=== PATIENT | female | born 1980 | race Caucasian/White ===

== ENCOUNTER 2021-01-04 08:29 | Outpatient (CLI) | payer OTHER, SELFPAY ==
--- NOTE | ~2021-01-04 | MM_ITS ---
EXAMINATION: MM screening vega BI w rhona HISTORY: Screening TECHNIQUE: Craniocaudal and mediolateral oblique 3-D tomosynthesis images were obtained and synthetic 2-D images were generated. CAD analysis was submitted and interpreted. COMPARISON: No prior mammogram is available for comparison at this institution. BREAST PARENCHYMAL COMPOSITION: Breast composed of scattered areas of fibroglandular density. FINDINGS: There are focal asymmetries in the mid outer aspect of the left breast posteriorly. There a re no suspicious masses, calcifications or architectural distortion in the right breast to suggest ma lignancy. IMPRESSION: 1. Focal left breast asymmetries posteriorly. 2. Additional mammographic views and possible breast ultrasound are recommended. BI-RADS Category 0: Incomplete: Needs additional imaging evaluation. Reviewed, dictated and finalized at location A. IMPRESSION: 1. Focal left breast asymmetries posteriorly. 2. Additional mammographic views and possible breast ultrasound are recommended . BI-RADS Category 0: Incomplete: Needs additional imaging evaluation.
== END 2021-01-04 08:30 | disposition home or self-care (01) ==
LOC: ANHIMG 08:32
PROVIDERS: PCP Internal Medicine; Visit Provider Obstetrics & Gynecology
DX: Z12.31 Encounter for screening mammogram for malignant neoplasm of breast (principal); R92.8 Other abnormal and inconclusive findings on diagnostic imaging of breast
CPT/HCPCS: 77063; 77067

== ENCOUNTER 2021-01-19 07:01 | Outpatient (CLI) | payer OTHER, SELFPAY ==
[2021-01-19 07:22] LABS: Basophils Absolute Auto 0.02 K/mm3 (0.00-0.10); Basophils Percent Auto 0.5 % (0.0-1.0); Eosinophils Absolute Auto 0.07 K/mm3 (0.02-0.50); Eosinophils Percent Auto 1.6 % (1.0-6.0); Hematocrit 42.2 % (35.0-49.0); Immature Granulocyte Absolute 0.01 K/mm3 (0.00-0.00); Immature Granulocyte Percent A 0.2 % (0.0-0.0); Lymphocytes Absolute Auto 1.37 K/mm3 (1.10-4.50); Lymphocytes Percent Auto 31.1 % (18.0-42.0); Mean Corpuscular HGB Conc 33.2 g/dL (32.0-36.0); Mean Corpuscular Hemoglobin 30.8 pg (27.0-31.0); Mean Corpuscular Volume 92.7 fL (78.0-102.0); Mean Platelet Volume 9.6 fl (9.2-11.8); Monocytes Absolute Auto 0.54 K/mm3 (0.10-0.90); Monocytes Percent Auto 12.2 % (2.0-11.0); Neutrophils Absolute Auto 2.4 K/mm3 (1.7-7.2); Neutrophils Percent Auto 54.4 % (50.0-70.0); Platelet Count Result 193 K/mm3 (150-420); Red Blood Count 4.55 M/mm3 (4.20-5.40); Red Cell Distribution Width 12.1 % (11.6-14.4); White Blood Count 4.4 K/mm3 (4.8-10.8)
[2021-01-19 08:21] LABS: Add Urine Microscopic? NO; Appearance Urine Clear (Clear); Bilirubin Urine Negative (Negative); Blood Urine Negative (Negative); Color Urine Light Yellow (Yellow); Glucose Urine UA Negative (Negative); Ketones Urine Negative (Negative); Leukocyte Esterase Ur Negative (Negative); Nitrate Urine Negative (Negative); Protein Urine Negative (Negative); Specific Grav Ur 1.015 (1.010-1.020); Urobilinogen Urine 0.2 mg/dL (0.2-1.0); pH Urine 7.5 (5.0-8.0)
[2021-01-19 08:39] LABS: Alanine Aminotransferase 30 U/L (14-59); Albumin Level 4.1 g/dL (3.4-5.0); Alkaline Phosphatase 40 U/L (46-116); Anion Gap 7 mmol/L (8-16); Aspartate Amino Transferase 15 U/L (15-37); Bilirubin,Total 0.3 mg/dL (0.00-1.00); Blood Urea Nitrogen 8 mg/dL (7-18); Calcium 8.5 mg/dL (8.5-10.1); Carbon Dioxide 30 mmol/L (21-32); Chloride 105 mmol/L (98-108); Cholesterol 139 mg/dL (0-200); Estimated Glomerular Filt Rate > 60; Glucose 95 mg/dL (70-99); HDL Direct 38 mg/dL (40-60); LDL Cholesterol Calculated 85 mg/dL (<130); Osmolality Calculated 292 mOsm/kg (285-295); Sodium 142 mmol/L (136-145); Thyroid Stimulating Hormone 1.45 uIU/mL (0.36-3.74); Total Protein 7.1 g/dL (6.4-8.2); Triglycerides 81 mg/dL (0-150)
== END 2021-01-19 07:02 | disposition home or self-care (01) ==
LOC: CHSLAB 07:03
PROVIDERS: PCP Internal Medicine; Visit Provider Internal Medicine
DX: Z00.00 Encounter for general adult medical examination without abnormal findings (principal)
CPT/HCPCS: 36415; 80053; 80061; 81003; 84443; 85025

== ENCOUNTER 2021-02-04 13:49 | Outpatient (CLI) | payer OTHER, SELFPAY ==
--- NOTE | ~2021-02-04 | MMUS_ITS ---
EXAMINATION: MM diagnostic vega LT w rhona, US breast LT limited HISTORY: Follow-up left breast asymmetry TECHNIQUE: Additional 3-D tomosynthesis images of left were performed and synthetic 2-D images were g enerated. CAD analysis was submitted and interpreted. High resolution left breast ultrasound was perf ormed. COMPARISON: 01/04/2021 BREAST PARENCHYMAL COMPOSITION: Breast composed of scattered areas of fibroglandular density FINDINGS: MAMMOGRAPHIC FINDINGS: There are no suspicious masses, calcifications or architectural distortion to suggest malignancy. ULTRASOUND: Limited left breast ultrasound: Normal heterogeneous echotexture without focal solid or cystic mass. IMPRESSION: 1. No evidence for malignancy in the left breast. 2. Routine yearly screening mammogram and regular clinical breast examination are recommended. BI-RADS Category 2: Benign finding(s). Reviewed, dictated and finalized at location A. IMPRESSION: 1. No evidence for malignancy in the left breast. 2. Routine yearly screening mammogram and regular clinical breast examination a re recommended. BI-RADS Category 2: Benign finding(s).
== END 2021-02-04 13:50 | disposition home or self-care (01) ==
LOC: ANHIMG 13:56
PROVIDERS: PCP Internal Medicine; Visit Provider Obstetrics & Gynecology
DX: R92.8 Other abnormal and inconclusive findings on diagnostic imaging of breast (principal)
CPT/HCPCS: 76642; 77061; 77065; G0279

== ENCOUNTER 2021-02-23 07:21 | Outpatient (CLI) | payer OTHER, SELFPAY ==
[2021-02-23 07:39] LABS: Basophils Absolute Auto 0.06 K/mm3 (0.00-0.10); Eosinophils Absolute Auto 0.17 K/mm3 (0.02-0.50); Eosinophils Percent Auto 2.7 % (1.0-6.0); Hemoglobin 13.9 g/dL (12.0-15.0); Immature Granulocyte Absolute 0.02 K/mm3 (0.00-0.00); Immature Granulocyte Percent A 0.3 % (0.0-0.0); Lymphocytes Absolute Auto 1.78 K/mm3 (1.10-4.50); Lymphocytes Percent Auto 28.3 % (18.0-42.0); Mean Corpuscular HGB Conc 32.3 g/dL (32.0-36.0); Mean Corpuscular Hemoglobin 30.5 pg (27.0-31.0); Mean Corpuscular Volume 94.3 fL (78.0-102.0); Mean Platelet Volume 9.3 fl (9.2-11.8); Monocytes Absolute Auto 0.56 K/mm3 (0.10-0.90); Monocytes Percent Auto 8.9 % (2.0-11.0); Neutrophils Absolute Auto 3.7 K/mm3 (1.7-7.2); Neutrophils Percent Auto 58.8 % (50.0-70.0); Platelet Count Result 256 K/mm3 (150-420); Red Blood Count 4.56 M/mm3 (4.20-5.40); Red Cell Distribution Width 11.9 % (11.6-14.4); White Blood Count 6.3 K/mm3 (4.8-10.8)
== END 2021-02-23 07:22 | disposition home or self-care (01) ==
LOC: CHSLAB 07:24
PROVIDERS: PCP Internal Medicine; Visit Provider Internal Medicine
DX: D72.819 Decreased white blood cell count, unspecified (principal)
CPT/HCPCS: 36415; 85025

== ENCOUNTER 2021-08-14 18:18 | Outpatient (CLI) | payer OTHER, SELFPAY ==
--- NOTE | ~2021-08-14 | XR_ITS ---
XR lumbar spine 2-3V 08/14/2021 18:46 Indication: Low back pain Procedure: 3 views lumbar spine Comparison: No prior studies for comparison. Findings: Vertebral body heights are maintained. There is mild disc narrowing at L4-5 and L5-S1. Pedi cles intact. No evidence for acute fracture or traumatic malalignment. No spondylolisthesis. Sacral f oramen are symmetric. 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 Impression: 1: Mild lumbar spondylosis. Reviewed, dictated and finalized at location A. Impression: 1: Mild lumbar spondylosis.
--- NOTE | ~2021-08-14 | XR_ITS ---
EXAMINATION: XR hip BI wo pelvis INDICATION: Bilateral hip pain TECHNIQUE: Two views of each hip are obtained. COMPARISON: None available FINDINGS: Bone alignment is normal. There is no fracture. There is mild osteoarthritis of the hips. T he soft tissues are unremarkable. IMPRESSION: 1. Mild osteoarthritis of the hips. Reviewed, dictated and finalized at location A.
[2021-08-14 18:35] LABS: Basophils Absolute Auto 0.06 K/mm3 (0.00-0.10); Basophils Percent Auto 0.8 % (0.0-1.0); Eosinophils Absolute Auto 0.23 K/mm3 (0.02-0.50); Eosinophils Percent Auto 3.2 % (1.0-6.0); Hematocrit 38.2 % (35.0-49.0); Hemoglobin 12.8 g/dL (12.0-15.0); Immature Granulocyte Absolute 0.02 K/mm3 (0.00-0.00); Immature Granulocyte Percent A 0.3 % (0.0-0.0); Lymphocytes Absolute Auto 2.19 K/mm3 (1.10-4.50); Lymphocytes Percent Auto 30.1 % (18.0-42.0); Mean Corpuscular HGB Conc 33.5 g/dL (32.0-36.0); Mean Corpuscular Hemoglobin 31.1 pg (27.0-31.0); Mean Corpuscular Volume 92.7 fL (78.0-102.0); Mean Platelet Volume 9.3 fl (9.2-11.8); Monocytes Absolute Auto 0.58 K/mm3 (0.10-0.90); Neutrophils Absolute Auto 4.2 K/mm3 (1.7-7.2); Neutrophils Percent Auto 57.6 % (50.0-70.0); Platelet Count Result 274 K/mm3 (150-420); Red Blood Count 4.12 M/mm3 (4.20-5.40); Red Cell Distribution Width 11.9 % (11.6-14.4); White Blood Count 7.3 K/mm3 (4.8-10.8)
[2021-08-14 18:36] LABS: Add Urine Microscopic? YES; Appearance Urine Clear (Clear); Bilirubin Urine Negative (Negative); Blood Urine 1+ (Negative); Color Urine Yellow (Yellow); Glucose Urine UA Negative (Negative); Ketones Urine Trace (Negative); Leukocyte Esterase Ur Negative (Negative); Nitrate Urine Negative (Negative); Protein Urine Negative (Negative); Specific Grav Ur 1.025 (1.010-1.020); Urobilinogen Urine 0.2 mg/dL (0.2-1.0)
[2021-08-14 19:06] LABS: Alanine Aminotransferase 23 U/L (14-59); Albumin Level 4.2 g/dL (3.4-5.0); Alkaline Phosphatase 42 U/L (46-116); Anion Gap 7 mmol/L (8-16); Aspartate Amino Transferase 13 U/L (15-37); Bilirubin,Total 0.3 mg/dL (0.00-1.00); Blood Urea Nitrogen 10 mg/dL (7-18); Calcium 8.7 mg/dL (8.5-10.1); Carbon Dioxide 27 mmol/L (21-32); Chloride 103 mmol/L (98-108); Estimated Glomerular Filt Rate > 60; Free T3 2.55 pg/mL (2.18-3.98); Free T4 Free Thyroxine 1.12 ng/dL (0.76-1.46); Glucose 88 mg/dL (70-99); Osmolality Calculated 282 mOsm/kg (285-295); Potassium 3.6 mmol/L (3.5-5.1); Sodium 137 mmol/L (136-145); Thyroid Stimulating Hormone 1.29 uIU/mL (0.36-3.74); Total Protein 7.5 g/dL (6.4-8.2)
[2021-08-14 19:25] LABS: CRP < 0.2 mg/dL (0.0-0.9)
[2021-08-14 19:43] LABS: Bacteria Urine Trace /hpf; Mucus Urine Rare /lpf; RBC Urine 0-2 /hpf (0-2); Squamous Epithelial Cell Urine Rare /hpf (Few); WBC Urine 0-3 /hpf (0-3)
== END 2021-08-14 18:19 | disposition home or self-care (01) ==
LOC: CHSLAB 18:21
PROVIDERS: PCP Internal Medicine; Visit Provider Internal Medicine
DX: R53.83 Other fatigue (principal); M54.9 Dorsalgia, unspecified; M25.552 Pain in left hip; M25.551 Pain in right hip
CPT/HCPCS: 36415; 72100; 73521; 80053; 81001; 84439; 84443; 84481; 85025; 86140

== ENCOUNTER 2022-04-08 15:29 | Outpatient (CLI) | payer OTHER, SELFPAY ==
--- NOTE | ~2022-04-08 | MM_ITS ---
EXAMINATION: MM screening vega BI w rhona HISTORY: Screening mammogram TECHNIQUE: Craniocaudal and mediolateral oblique 3-D tomosynthesis images were obtained and synthetic 2-D images were generated. CAD analysis was submitted and interpreted. COMPARISON: 02/04/2021, 01/04/2021 BREAST PARENCHYMAL COMPOSITION: There are scattered areas of fibroglandular density. FINDINGS: No suspicious mass, calcification, or architectural distortion are identified in either rich ast to suggest malignancy. There has been no suspicious interval change. IMPRESSION: 1. No mammographic evidence of malignancy. 2. Recommend routine screening mammography in one year. BI-RADS Category 1: Negative Reviewed, dictated and finalized at location A. RAM MANAGEMENT ANALYST
== END 2022-04-08 15:30 | disposition home or self-care (01) ==
PROVIDERS: PCP Internal Medicine; Visit Provider Obstetrics & Gynecology
DX: Z12.31 Encounter for screening mammogram for malignant neoplasm of breast (principal)
CPT/HCPCS: 77063; 77067

== ENCOUNTER 2022-08-30 07:16 | Outpatient (CLI) | payer OTHER, SELFPAY ==
[2022-08-30 07:37] LABS: Appearance Urine Clear (Clear); Bilirubin Urine Negative (Negative); Blood Urine 1+ (Negative); Color Urine Light Yellow (Yellow); Glucose Urine UA Negative (Negative); Ketones Urine Negative (Negative); Leukocyte Esterase Ur Negative (Negative); Nitrate Urine Negative (Negative); Protein Urine Negative (Negative); Specific Grav Ur 1.015 (1.010-1.020); Urobilinogen Urine 0.2 mg/dL (0.2-1.0)
[2022-08-30 07:38] LABS: Basophils Absolute Auto 0.05 K/mm3 (0.00-0.10); Basophils Percent Auto 0.8 % (0.0-1.0); Eosinophils Percent Auto 6.8 % (1.0-6.0); Hematocrit 39.5 % (35.0-49.0); Hemoglobin 13.1 g/dL (12.0-15.0); Immature Granulocyte Absolute 0.02 K/mm3 (0.00-0.00); Immature Granulocyte Percent A 0.3 % (0.0-0.0); Lymphocytes Absolute Auto 1.81 K/mm3 (1.10-4.50); Lymphocytes Percent Auto 30.7 % (18.0-42.0); Mean Corpuscular HGB Conc 33.2 g/dL (32.0-36.0); Mean Corpuscular Volume 93.4 fL (78.0-102.0); Mean Platelet Volume 9.5 fl (9.2-11.8); Monocytes Absolute Auto 0.49 K/mm3 (0.10-0.90); Monocytes Percent Auto 8.3 % (2.0-11.0); Neutrophils Absolute Auto 3.1 K/mm3 (1.7-7.2); Neutrophils Percent Auto 53.1 % (50.0-70.0); Platelet Count Result 262 K/mm3 (150-420); Red Blood Count 4.23 M/mm3 (4.20-5.40); White Blood Count 5.9 K/mm3 (4.8-10.8)
[2022-08-30 07:43] LABS: Add Urine Microscopic? YES; Bacteria Urine Rare /hpf; RBC Urine 0-2 /hpf (0-2); Squamous Epithelial Cell Urine None seen /hpf (Few); WBC Urine None seen /hpf (0-3)
[2022-08-30 08:21] LABS: Alanine Aminotransferase 31 U/L (14-59); Albumin Level 3.9 g/dL (3.4-5.0); Alkaline Phosphatase 43 U/L (46-116); Anion Gap 6 mmol/L (8-16); Aspartate Amino Transferase 20 U/L (15-37); Bilirubin,Total 0.2 mg/dL (0.00-1.00); Blood Urea Nitrogen 14 mg/dL (7-18); Calcium 8.4 mg/dL (8.5-10.1); Carbon Dioxide 29 mmol/L (21-32); Chloride 106 mmol/L (98-108); Cholesterol 159 mg/dL (0-200); Estimated Glomerular Filt Rate > 60; Glucose 101 mg/dL (70-99); HDL Direct 42 mg/dL (40-60); LDL Cholesterol Calculated 105 mg/dL (<130); Osmolality Calculated 292 mOsm/kg (285-295); Potassium 4.2 mmol/L (3.5-5.1); Sodium 141 mmol/L (136-145); Thyroid Stimulating Hormone 2.04 uIU/mL (0.36-3.74); Total Protein 6.7 g/dL (6.4-8.2); Triglycerides 62 mg/dL (0-150)
== END 2022-08-30 07:17 | disposition home or self-care (01) ==
LOC: CHSLAB 07:18
PROVIDERS: PCP Internal Medicine; Visit Provider Internal Medicine
DX: Z00.00 Encounter for general adult medical examination without abnormal findings (principal); R53.83 Other fatigue; E78.5 Hyperlipidemia, unspecified
CPT/HCPCS: 36415; 80053; 80061; 81001; 84443; 85025

== ENCOUNTER 2023-10-06 15:47 | Outpatient (CLI) | payer OTHER, SELFPAY ==
--- NOTE | ~2023-10-06 | MM_ITS ---
EXAMINATION: MM screening vega BI w rhona HISTORY: Screening mammogram TECHNIQUE: Craniocaudal and mediolateral oblique 3-D tomosynthesis images were obtained and synthetic 2-D images were generated. CAD analysis was submitted and interpreted. COMPARISON: 04/08/2022, 01/04/2021 BREAST PARENCHYMAL COMPOSITION:Not Dense. There are scattered areas of fibroglandular density. FINDINGS: No suspicious mass, calcification, or architectural distortion are identified in either rich ast to suggest malignancy. There has been no suspicious interval change. IMPRESSION: No mammographic evidence of malignancy. Recommend routine screening mammography in one year. BI-RADS Category 1: Negative Reviewed, dictated and finalized at location .
== END 2023-10-06 15:48 | disposition home or self-care (01) ==
PROVIDERS: PCP Internal Medicine; Visit Provider Obstetrics & Gynecology
DX: Z12.31 Encounter for screening mammogram for malignant neoplasm of breast (principal)
CPT/HCPCS: 77063; 77067

== ENCOUNTER 2024-02-20 09:29 | Emergency (ER) | payer OTHER, SELFPAY ==
--- NOTE | 2024-02-20 10:34 | ED_ITS ---
HPI - URI/Sore Throat General Chief Complaint: Upper Respiratory Infection Stated Complaint: cough Time Seen by Provider: 02/20/24 10:34 Source: patient, RN notes reviewed and old records reviewed Mode of arrival: ambulatory Limitations: no limitations History of Present Illness HPI Narrative: 43-year-old female to Express Care with complaint of dry cough for 2 days that is becoming increasingly more persistent. Patient states concern for pneumonia because her 2 children just finished being treated for pneumonia. Patient denies fever, shortness of breath, chest pain, allergies, pertinent medical history. Patient able to tolerate fluids by mouth. Patient resting in exam room in no acute distress, appears tired. respirations even and nonlabored. Patient able to speak in complete sentences without difficulty. Related Data Home Medications Medication Instructions Recorded Confirmed galcanezumab-gnlm 120 mg/mL 120 mg subcut MONTHLY 12/26/20 02/20/24 subcutaneous pen injector (Emgality Pen) Allergies Allergy/AdvReac Type Severity Reaction Status Date / Time No Known Allergies Allergy Unknown Verified 04/28/23 14:25 Review of Systems Review of Systems: All systems reviewed & are unremarkable except as noted in HPI and below Constitutional: Constitutional: Reports no additional constitutional complaints Eyes: Eyes: Reports no additional eye complaints ENT: Reports system reviewed and no additional complaints, except as documented Cardiovascular: Cardiovascular: Reports no additional cardiovascular complaints, Denies chest pain and Denies dyspnea Respiratory: Respiratory: Reports no additional respiratory complaints, Denies cough and Denies dyspnea Musculoskeletal: Musculoskeletal: Reports no additional musculoskeletal complaints Neurologic: Reports system reviewed and no additional complaints, except as documented Psychiatric: Psychiatric: Reports no additional psychiatric complaints PMFSH Past Medical History Medical History Bilateral hip dysplasia Lumbar spondylolysis Missed Vaginal delivery x 2 Surgical History Surgical History History of craniotomy Family History Family History Father Hypertension Family history of elevated blood lipids Grandparent Hypertension, Onset Age: 70 Family history of malignant neoplasm of breast Family history of lupus erythematosus Social History Social History Smoking status: Never smoker Second hand tobacco smoke exposure: No Alcohol intake: current Substance use: never Substance use type: does not use Do You Feel Safe in your Home?: Yes Lack of Transportation: No Lack of Food: Never True Current Housing: I Have Housing Concerned About Future Housing: No Difficulty Paying Gas/Electric Bills: No Difficulty Paying for Meds: No Currently Unemployed: No Education: Bachelor's Degree Difficulty w/ Childcare or Family Care: No Comments At the time of my signature, I reviewed and agree with the nursing past medical, surgical, social, and family history. There is no relevant family history pertinent to the patient complaint. Exam Const: General: cooperative, healthy appearing, comfortable, no acute distress, alert and well nourished Nutritional Appearance: well nourished Orientation/consciousness: patient oriented x3 Limitations: no limitations HENMT: Head: normal to inspection Ears: external ears normal Face/Nose/Sinus: Normal external nose present, Normal nares present, normal facial exam, No erythema and No edema Face and sinus: normal facial exam, no erythema and no edema Mouth: Yes Normal oral and palatal mucosa present Eyes: General: appearance normal, both eyes and all related structures Neck: Neck: normal visual inspection, full ROM and no meningeal signs Lymphatic: no lymphadenopathy noted and no lymphedema noted Chest: Chest palpation & inspection: normal inspection of the chest Resp: Effort & Inspection: normal respiratory effort and able to speak in complete sentences Auscultation: clear to auscultation bilaterally Cardio: Jugular venous distension: no JVD Rate: regular rate Rhythm: regular rhythm Back/Spine/Pelvis: Cervical Spine: cervical ROM normal Skin: General skin exam: normal color, no rashes or lesions noted and turgor normal Neuro: General: patient oriented x3, gait normal, moves all extremities and no meningeal signs Speech: normal speech Gait exam (Neuro): Normal gait present Extrem: General: normal to inspection, full ROM and capillary refill normal Psych: Appearance: grossly normal and well kempt Course Course Emergency Course: Some parts of this dictation were generated by voice recognition software and may contain typographical and/or grammatical inaccuracies. Level of Care: Express Care Visit Vital Signs Vital signs: Vital Signs Temperature 36.7 C 02/20/24 10:46 Pulse Rate 77 02/20/24 10:46 Respiratory Rate 16 02/20/24 10:46 Blood Pressure 120/86 02/20/24 10:46 Pulse Oximetry 100 02/20/24 10:46 Temperature 36.7 C 02/20/24 10:46 Pulse Rate 77 02/20/24 10:46 Respiratory Rate 16 02/20/24 10:46 Blood Pressure 120/86 02/20/24 10:46 Pulse Oximetry 100 02/20/24 10:46 reviewed MDM - URI/Sore Throat MDM Narrative Medical decision making narrative: 43-year-old female to Express Care with complaint of dry cough for 2 days that is becoming increasingly more persistent. Patient states concern for pneumonia because her 2 children just finished being treated for pneumonia. Patient denies fever, shortness of breath, chest pain, allergies, pertinent medical history. Patient able to tolerate fluids by mouth. Patient resting in exam room in no acute distress, appears tired. respirations even and nonlabored. Patient able to speak in complete sentences without difficulty. Differential Diagnosis Differential diagnosis: Likely upper respiratory infection, croup, otitis media, sinusitis, viral infection, bronchitis, influenza and pharyngitis Discharge Plan Discharge Clinical Impression: Pneumonia Patient Disposition: Home, Self-Care Condition: Stable Instructions: Pneumonia (ED) Additional Instructions: please finish entire course of antibiotic treatment -Alternate Tylenol and Motrin per package directions for fever or pain. -Antihistamine medication such as Benadryl at night and Zyrtec/Claritin/Yesica during the day can help improve symptoms. -Use Flonase twice a day for 5 days then daily to help reduce the inflammation and dry up your sinuses. -You can also use Sudafed or Mucinex. Be sure to drink plenty of water with these medications at least 8 ounces with every dose and it is important to drink 8 to 10 glasses of water per day. Water is a natural decongestant -Eat and drink things that are easy to swallow, like tea or soup, or popsicles. -Oral rinses such as: Salt water gargles and/or may use topical anesthetic (eg. Chloraseptic spray) or lozenges to relieve dryness or throat pain). -Frequent hand washing or hand assistant warehouse manager is one of the best ways to prevent spread of infection. -Using a vaporizer or humidifier at night will also help thin secretions and help with coughing up phlegm. -Follow up with primary care provider in 2-3 days if condition is not improving; or seek ER visit if you have trouble breathing, cannot drink enough fluids, have muffled voice, difficulty opening your mouth, or severe swelling. Prescriptions: New azithromycin 250 mg tablet 250 mg PO DAILY Qty: 6 0RF Rx Instructions: 250 mg orally. Take TWO tablets today, then one tablet daily for 4 days. No Action Emgality Pen 120 mg/mL pen injector 120 mg subcut MONTHLY Follow-up/Referrals: Radames Ladd MD [Primary Care Provider] -
[2024-02-20 10:46] VITALS: BP 120/86; PULSE 77; RESP 16; TEMP 36.7; O2SAT 100
== END 2024-02-20 11:09 | disposition home or self-care (01) ==
PROVIDERS: Emergency Provider Nurse Practitioner Family; PCP Internal Medicine
DX: J18.9 Pneumonia, unspecified organism (principal); Q65.89 Other specified congenital deformities of hip; M47.816 Spondylosis without myelopathy or radiculopathy, lumbar region
CPT/HCPCS: 99213; G0463

== ENCOUNTER 2024-06-14 15:58 | Outpatient (CLI) | payer OTHER, SELFPAY ==
[2024-06-14 16:16] LABS: Add Urine Microscopic? NO; Appearance Urine Clear (Clear); Basophils Absolute Auto 0.11 K/mm3 (0.00-0.10); Basophils Percent Auto 1.4 % (0.0-1.0); Bilirubin Urine Negative (Negative); Blood Urine Negative (Negative); Color Urine Light Yellow (Yellow); Eosinophils Absolute Auto 0.83 K/mm3 (0.02-0.50); Eosinophils Percent Auto 10.8 % (1.0-6.0); Glucose Urine UA Negative (Negative); Hematocrit 40.7 % (35.0-49.0); Hemoglobin 13.3 g/dL (12.0-15.0); Immature Granulocyte Absolute 0.01 K/mm3 (0.00-0.00); Immature Granulocyte Percent A 0.1 % (0.0-0.0); Ketones Urine Negative (Negative); Leukocyte Esterase Ur Negative LEU/UL (Negative); Lymphocytes Absolute Auto 2.01 K/mm3 (1.10-4.50); Lymphocytes Percent Auto 26.2 % (18.0-42.0); Mean Corpuscular HGB Conc 32.7 g/dL (32-36); Mean Corpuscular Hemoglobin 30.2 pg (27.0-31.0); Mean Corpuscular Volume 92.5 fL (78.0-102.0); Mean Platelet Volume 9.3 fl (9.2-11.8); Monocytes Absolute Auto 0.55 K/mm3 (0.10-0.90); Monocytes Percent Auto 7.2 % (2.0-11.0); Neutrophils Absolute Auto 4.16 K/mm3 (1.70-7.20); Neutrophils Percent Auto 54.3 % (50.0-70.0); Nitrate Urine Negative (Negative); Platelet Count Result 289 K/mm3 (150-420); Protein Urine Negative (Negative); Red Cell Distribution Width 12.1 % (11.6-14.4); Specific Grav Ur 1.025 (1.010-1.020); Urobilinogen Urine 0.2 mg/dL (0.2-1.0); White Blood Count 7.7 K/mm3 (4.8-10.8); pH Urine 5.5 (5.0-8.0)
[2024-06-14 17:10] LABS: Alanine Aminotransferase 41 U/L (14-59); Albumin Level 4.5 g/dL (3.4-5.0); Alkaline Phosphatase 54 U/L (46-116); Anion Gap 6 mmol/L (4-12); Aspartate Amino Transferase 19 U/L (15-37); Bilirubin,Total 0.4 mg/dL (0.00-1.00); Blood Urea Nitrogen 13 mg/dL (7-18); Calcium 9.1 mg/dL (8.5-10.1); Carbon Dioxide 31 mmol/L (21-32); Chloride 105 mmol/L (98-108); Cholesterol 182 mg/dL (0-200); Estimated Glomerular Filt Rate > 60; Glucose 95 mg/dL (70-99); HDL Direct 49 mg/dL (40-60); LDL Cholesterol Calculated 114 mg/dL (<130); Osmolality Calculated 294 mOsm/kg (285-295); Potassium 4.2 mmol/L (3.5-5.1); Sodium 142 mmol/L (136-145); Thyroid Stimulating Hormone 1.35 uIU/mL (0.36-3.74); Total Protein 7.4 g/dL (6.4-8.2); Triglycerides 96 mg/dL (0-150)
--- OUTSIDE RECORDS SUMMARY | 2024-06-14 17:55 | XMS_ITS | Referral Summary ---
Author Organization [facility] Address [address] [place] [address] Care Team Providers Care Antitank Assault Gunner Name Role Phone Radames Ladd MD Primary Care Provider [phone] Alivia Ortega PT Unavailable Unavailabl e Allergies No known active allergies Medications ibuprofen/diphen hydramine cit (IBUPROFEN PM ORAL) Take by mouth Active galcanezumab-gnl m 120 mg/mL pen injector Inject 120 mg under the skin every 30 (thirty) days 1 mL 11 10/21/2022 Active Active Problems Problem Noted Date Diagnosed Date Mild obstructive sleep apnea 02/11/2023 H/O arteriovenous malformation (AVM) 06/04/2020 Overview (06/04/2020): Right Cerebellar AVM, s/p clipping 2004 Assessment & Plan (02/09/2024 3:44 PM LEGAL PROJECT MANAGER): No treatment is required at this time Migraine without aura and wi thout status migrainosus, not intractable 06/04/2020 Overview (08/13/2023): Please see my note 08/13/2023 for full details regarding patient's headache history Assessment & Plan (02/09/2024 3:44 PM LEGAL PROJECT MANAGER): The patient is doing extremely well with Emgality 120 mg monthly. She has intermittent headaches but these respond to NSAIDs. She reports no side effects Continue Emgality 120 mg monthly Follow up in 1 year Assessment & Plan (08/13/2023 1:42 PM CDT): Assessment: The patient has a history of migraine headaches. She is currently happy with her regimen of Emgality 120 mg monthly and ibuprofen as needed. On this she has had a greater than 50% reduction in severity and frequency of her headaches. She reports no side effects. Plan: Continue Emgality 120 mg monthly. Continue ibuprofen as needed. Maintain headache calendar to monitor severity and frequency of headaches Follow-up six months. Social History Tobacco Use Types Packs/Day Years Used Date Smoking Tobacco: Never Smokeless Tobacco: Never Tobacco Cessation:Counseling Given: Not Answered Comments Unknown Sex and Gender Information Value Date Recorded Sex Assigned at Not on file Legal Sex Female 11:50 PM LEGAL PROJECT MANAGER Gender Identity Female 06/03/2020 8:04 PM LEGAL PROJECT MANAGER Sexual Orientation Straight 06/03/2020 8: 04 PM LEGAL PROJECT MANAGER Last Filed Vital Signs Vital Sign Reading Time Taken Comments Blood Pressure 116/58 02/09/2024 3:30 PM LEGAL PROJECT MANAGER Pulse 115 02/09/2024 3:30 PM LEGAL PROJECT MANAGER Temperature 36.7 C (98.1 F) 01/27/2023 3:32 PM CDT Respiratory Rate 16 08/13/2023 1:00 PM CDT Oxygen Saturation 98% 02/09/2024 3:30 PM LEGAL PROJECT MANAGER Inhaled Oxygen Concentration - - Weight 70.8 kg (156 lb) 02/09/2024 3:30 PM LEGAL PROJECT MANAGER Height 167.6 cm (5' 6 ) 02/09/2024 3:30 PM LEGAL PROJECT MANAGER Body Mass Index 25.18 02/09/2024 3:30 PM LEGAL PROJECT MANAGER Plan of Treatment Not on file Insurance AETNA [facility] Care Teams Antitank Assault Gunner Relationship Specialty Start Date End Date Radames Ladd MD PCP - General Internal Medicine 06/04/20 Alivia Ortega, PT Physical Therapist Physical Therapy 12/12/21
--- OUTSIDE RECORDS SUMMARY | 2024-06-14 17:55 | XMS_ITS | Encounter Summary ---
Author Organization [facility] Address [address] [place] [address] Care Team Providers Care Director Of Guidance In [employer] Name Role Phone Unavailable Primary Care Provider Unavailabl e Encounter Details Date Type Department Care Team (Late st Contact Info) Description 06/11/2024 External Device Data [facility] ABSTRACTION Provider, Abstract NO ADDRESS ON FILE Social History Tobacco Use Types Packs/Day Years Used Date Smoking Tobacco: Never Assessed Comments Unknown Sex and Gender Information Value Date Recorded Sex Assigned at Not on file Legal Sex Female 11:11 AM PLATE SETTER Gender Identity Not on file Sexual Orientation Not on file documented as of this encounter Plan of Treatment Not on file documented as of this encounter Visit Diagnoses Not on filedocumented in this encounter
--- OUTSIDE RECORDS SUMMARY | 2024-06-14 17:55 | XMS_ITS | Clinical Summary ---
Author Organization [facility] Address [address] [place] [address] Care Team Providers Care It Programmer Analyst Name Role Phone Radames Ladd MD Primary Care Provider [phone] Alivia Ortega PT Unavailable Unavailabl e Allergies [...] 2004 Assessment & Plan (02/09/2024 3:44 PM ASSURANCE SERVICES MANAGER HEALTH CARE): No treatment is required at this time Migraine without aura and wi thout status migrainosus, not intractable 06/04/2020 Overview (08/13/2023): Please see my note 08/13/2023 for full details regarding patient's headache history Assessment & Plan (02/09/2024 3:44 PM ASSURANCE SERVICES MANAGER HEALTH CARE): The patient is doing extremely well with [...] and frequency of headaches Follow-up six months. Surgical History Surgery Date Site/Laterality Comments CRANIOTOMY FOR AVM 04/06/2004 - 04/05/2005 Medical History Medical History Date Comments Cerebral arteriovenous malformation (AVM) s/p clipping 2004 Family History Medical History Relation Name Comments Hypertension Father Relation Name Status Comments Father Social History Tobacco Use Types Packs/Day Years Used Date Smoking Tobacco: Never Smokeless Tobacco: Never Tobacco Cessation:Counseling Given: Not Answered Comments Unknown Sex and Gender Information Value Date Recorded Sex Assigned at Not on file Legal Sex Female 11:50 PM ASSURANCE SERVICES MANAGER HEALTH CARE Gender Identity Female 06/03/2020 8:04 PM ASSURANCE SERVICES MANAGER HEALTH CARE Sexual Orientation Straight 06/03/2020 8: 04 PM ASSURANCE SERVICES MANAGER HEALTH CARE Obstetrics History Last Filed Vital Signs Vital Sign Reading Time Taken Comments Blood Pressure 116/58 02/09/2024 3:30 PM ASSURANCE SERVICES MANAGER HEALTH CARE Pulse 115 02/09/2024 3:30 PM ASSURANCE SERVICES MANAGER HEALTH CARE Temperature 36.7 C (98.1 F) 01/27/2023 3:32 PM CDT Respiratory Rate 16 08/13/2023 1:00 PM CDT Oxygen Saturation 98% 02/09/2024 3:30 PM ASSURANCE SERVICES MANAGER HEALTH CARE Inhaled Oxygen Concentration - - Weight 70.8 kg (156 lb) 02/09/2024 3:30 PM ASSURANCE SERVICES MANAGER HEALTH CARE Height 167.6 cm (5' 6 ) 02/09/2024 3:30 PM ASSURANCE SERVICES MANAGER HEALTH CARE Body Mass Index 25.18 02/09/2024 3:30 PM ASSURANCE SERVICES MANAGER HEALTH CARE Plan of Treatment Health Maintenance Due Date Last Done Comments Breast Cancer Screening-Mammogram 1980 Cervical Cancer Screening 1980 Depression Screening 1980 Hepatitis C Screening 1980 Varicella Vaccines (1 of 2 - 13+ 2-dose series) 1993 Hepatitis B Screening 1998 Regular Well Visit/Exam 18-64 1998 Influenza Vaccine (#1) 2023 03/03/2012 DTaP/Tdap/Td Vaccine (2 - Td or Tdap) 06/07/2025 06/08/2015 HPV Vaccines Aged Out No longer eligi ble based on patient's age to complete this topic Pneumococcal vaccine <65 Aged Out No longer eligible based on patient's age to complete this topic Insurance [facility] AETNA [facility] Care Teams It Programmer Analyst Relationship Specialty Start Date End Date Radames Ladd MD PCP - General Internal Medicine 06/04/20 Alivia Ortega, PT Physical Therapist Physical Therapy 12/12/21
--- OUTSIDE RECORDS SUMMARY | 2024-06-14 17:55 | XMS_ITS | Clinical Summary ---
Author Organization [facility] [address] [place] [address] Phone Care Team Providers Care Grape Grower Name Role Phone Unavailable Primary Care Provider Unavailabl e Medications predniSONE (DELTASONE) 20 mg tablet Take 3 tablets by ORAL route once daily for 5 days 15 Tablet 03/08/2022 11:00 AM GEM CUTTER 2 Active benzonatate (Tessalon Perles) 100 mg capsule Take 1 capsule by ORAL route every 8 hours As needed 25 Capsule 03/08/2022 11:00 AM GEM CUTTER 2 Active galcanezumab-gn lm (Emgality Pen) 120 mg/mL Pen Injector Inject 120 mg under the skin every 30 (thirty) days 1 mL 11 09/13/2023 3:54 PM CDT 3 Active triamcinolone acetonide (KENALOG) 0.1 % Cream Apply a thin layer to the affected area(s) topically 2 times daily. Combine with eucerin 1:1. 454 Gram 03/27/2023 3:35 PM GEM CUTTER 3 Active galcanezumab-gn lm 120 mg/mL Pen Injector Inject 1 mL by subcutaneous injection every 30 days. 1 mL 11 10/15/2023 4:01 PM CDT 4 Active Encounters Date Type Department Care Team Description 06/11/2024 External Device Data [facility] ABSTRACTION Provider, Abstract 06/11/2024 External Device Data [facility] ABSTRACTION Provider, Abstract 06/08/2024 External Device Data [facility] ABSTRACTION Provider, Abstract 05/25/2024 External Device Data [facility] ABSTRACTION Provider, Abstract 05/17/2024 External Device Data [facility] ABSTRACTION Provider, Abstract 04/28/2024 External Device Data [facility] ABSTRACTION Provider, Abstract from Last 3 Months Social History Tobacco Use Types Packs/Day Years Used Date Smoking Tobacco: Never Assessed Comments Unknown Sex and Gender Information Value Date Recorded Sex Assigned at Not on file Legal Sex Female 11:11 AM GEM CUTTER Gender Identity Not on file Sexual Orientation Not on file Plan of Treatment Health Maintenance Due Date Last Done Comments DTAP/TDAP/TD VACCINES (1 - Tdap) 11/10/1999 HEPATITIS B VACCINES (1 of 3 - 19+ 3-dose series) 11/10/1999 CERVICAL CANCER SCREENING 2010 BREAST CANCER SCREENING 2020 INFLUENZA VACCINE (#1) 2023 HPV VACCINES Aged Out No longer eligi ble based on patient's age to complete this topic PNEUMOCOCCAL VACCINE 0-49 YEARS Aged Out No longer eligible based on patient's age to complete this topic Insurance [employer] [facility] Address: [facility] [id number] [place] [address] [facility] [employer] Commercial
== END 2024-06-14 15:59 | disposition home or self-care (01) ==
PROVIDERS: PCP Internal Medicine; Visit Provider Internal Medicine
DX: Z00.00 Encounter for general adult medical examination without abnormal findings (principal)
CPT/HCPCS: 36415; 80053; 80061; 81003; 84443; 85025

== ENCOUNTER 2024-11-01 16:10 | Outpatient (CLI) | payer OTHER, SELFPAY ==
--- NOTE | ~2024-11-01 | MM_ITS ---
EXAMINATION: MM screening vega BI w rhona HISTORY: Screening TECHNIQUE: Craniocaudal and mediolateral oblique 3-D tomosynthesis images were obtained and synthetic 2-D images were generated. CAD analysis was submitted and interpreted. COMPARISON: Comparison to multiple prior studies sequentially, with oldest reviewed study dated 04/2020. BREAST PARENCHYMAL COMPOSITION: Not dense: There are scattered areas of fibroglandular density. FINDINGS: There is no evidence of suspicious mass, calcification, or architectural distortion to sugg est malignancy in either breast. There has been no suspicious interval change. IMPRESSION: 1. No mammographic evidence of malignancy. 2. Recommend routine screening mammography in one year. BI-RADS Category 1: Negative Reviewed, dictated and finalized at location B.
--- OUTSIDE RECORDS SUMMARY | 2024-11-01 16:14 | XMS_ITS | Clinical Summary ---
Author Organization [employer] [address] - [address] [facility] [address] [place] [address] Phone Care Team Providers Care Grease Worker Name Role Phone Unavailable Primary Care Provider Unavailabl e Medications predniSONE (DELTASONE) 20 mg tablet Take 3 tablets by ORAL route once daily for 5 days 15 Tablet 03/08/2022 11:00 AM [employer] 2 Active benzonatate (Tessalon Perles) 100 mg capsule Take 1 capsule by ORAL route every 8 hours As needed 25 Capsule 03/08/2022 11:00 AM [employer] 2 Active galcanezumab-gn lm (Emgality Pen) 120 mg/mL Pen Injector Inject 120 mg under the skin every 30 (thirty) days 1 mL 11 09/13/2023 3:54 PM CDT 3 Active triamcinolone acetonide (KENALOG) 0.1 % Cream Apply a thin layer to the affected area(s) topically 2 times daily. Combine with eucerin 1:1. 454 Gram 03/27/2023 3:35 PM [employer] 3 Active galcanezumab-gn lm 120 mg/mL Pen Injector Inject 1 mL by subcutaneous injection every 30 days. 1 mL 11 10/15/2023 4:01 PM CDT 4 Active Encounters Date Type Department Care Team Description 10/19/2024 External Device Data [facility] ABSTRACTION Provider, Abstract 10/19/2024 External Device Data [facility] ABSTRACTION Provider, Abstract 09/20/2024 External Device Data [facility]STRACTION Provider, Abstract 09/06/2024 External Device Data [facility] Provider, Abstract 08/30/2024 External Device Data [facility]STRA[facility] Provider, Abstract 08/24/2024 External Device Data [facility]STRA[facility] Provider, Abstract 08/24/2024 External Device Data [facility]STRA[facility] Provider, Abstract from Last 3 Months Social History Tobacco Use Types Packs/Day Years Used Date Smoking Tobacco: Never Assessed Comments Unknown Sex and Gender Information Value Date Recorded Sex Assigned at Not on file Legal Sex Female 11:11 AM [employer] Gender Identity Not on file Sexual Orientation Not on file Plan of Treatment Health Maintenance Due Date Last Done Comments HPV VACCINES (1 - 3-dose series) 11/10/1995 DTAP/TDAP/TD VACCINES (1 - Tdap) 11/10/1999 HEPATITIS B VACCINES (1 of 3 - 19+ 3-dose series) 09/1999 HPV/Cotest (21-29) 2001 CERVICAL CANCER SCREENING 2010 HPV/Cotest (30-65) 2010 PAP SMEAR 2010 BREAST CANCER SCREENING 2020 INFLUENZA VACCINE (#1) 2024 Insurance [employer] [facility] [place] [facility] [employer] Commercial
--- OUTSIDE RECORDS SUMMARY | 2024-11-01 16:14 | XMS_ITS | Clinical Summary ---
Author Organization [facility] Address [address] [place] [address] Care Team Providers Care Heel Buffer Name Role Phone Radames aLdd MD Primary Care Provider [phone] Alivia Ortega PT Unavailable Unavailabl e Allergies No known active allergies Medications ibuprofen/diphe nhydramine cit (IBUPROFEN PM ORAL) Take by mouth Active galcanezumab-gn lm 120 mg/mL pen injector Inject 120 mg under the skin every 30 (thirty) days 1 mL 5 Active galcanezumab-gn lm 120 mg/mL pen injector Inject 120 mg under the skin every 30 (thirty) days 1 mL 3 10/07/19 25 Discontinu ed(Reorder ) Active Problems Problem Noted Date Diagnosed Date Mild obstructive sleep apnea 02/11/2023 H/O arteriovenous malformation (AVM) 06/04/2020 Overview (06/04/2020): Right Cerebellar AVM, s/p clipping 2004 Assessment & Plan (02/09/2024 3:44 PM APPRAISER IRRIGATION TAX): No treatment is required at this time Migraine without aura and wi thout status migrainosus, not intractable 06/04/2020 Overview (08/13/2023): Please see my note 08/13/2023 for full details regarding patient's headache history Assessment & Plan (02/09/2024 3:44 PM APPRAISER IRRIGATION TAX): The patient is doing extremely well with [...] on file Legal Sex Female 11:50 PM [employer] IRRIGATION TAX Gender Identity Female 06/03/2020 8:04 PM [employer] IRRIGATION TAX Sexual Orientation Straight 06/03/2020 8: 04 PM [employer]ER IRRIGATION TAX Obstetrics History Last Filed Vital Signs Vital Sign Reading Time Taken Comments Blood Pressure 116/58 02/09/2024 3:30 PM APPRAISER IRRIGATION TAX Pulse 115 02/09/2024 3:30 PM APPRAISER IRRIGATION TAX Temperature 36.7 C (98.1 F) 01/27/2023 3:32 PM CDT Respiratory Rate 16 08/13/2023 1:00 PM CDT Oxygen Saturation 98% 02/09/2024 3:30 PM APPRAISER IRRIGATION TAX Inhaled Oxygen Concentration - - Weight 70.8 kg (156 lb) 02/09/2024 3:30 PM AP[employer]ER IRRIGATION TAX Height 167.6 cm (5' 6) 02/09/2024 3:30 PM APPRAISER IRRIGATION TAX Body Mass Index 25.18 02/09/2024 3:30 PM APPRAISER IRRIGATION TAX Plan of Treatment Health Maintenance Due Date Last Done Comments Breast Cancer Screening-Mammogram 1980 Cervical Cancer Screening 1980 Depression Screening 1980 Hepatitis C Screening 1980 Varicella Vaccines (1 of 2 - 13+ 2-dose series) 1993 Hepatitis B Screening 1998 Regular Well Visit/Exam 18-64 1998 HPV Vaccines (1 - 3-dose SCD M series) 11/10/2007 Influenza Vaccine (#1) 2024 03/03/2012 DTaP/Tdap/Td Vaccine (2 - Td or Tdap) 06/07/2025 06/08/2015 Pneumococcal vaccine <65 Aged Out No longer eligible based on patient's age to complete this topic Insurance [facility] Care Teams Heel Buffer Relationship Specialty Start Date End Date Radames Ladd MD PCP - General Internal Medicine 06/04/20 Alivia Ortega, PT Physical Therapist Physical Therapy 12/12/21
--- OUTSIDE RECORDS SUMMARY | 2024-11-01 16:14 | XMS_ITS | Referral Summary ---
Author Organization [facility] Address [address] [place] [address] Care Team Providers Care Drill Press Operator Name Role Phone Radames Ladd MD Primary Care Provider [phone] Alivia Ortega PT Unavailable Unavailabl e Allergies [...] 2004 Assessment & Plan (02/09/2024 3:44 PM LINOLEUM LAYER HELPER): No treatment is required at this time Migraine without aura and wi thout status migrainosus, not intractable 06/04/2020 Overview (08/13/2023): Please see my note 08/13/2023 for full details regarding patient's headache history Assessment & Plan (02/09/2024 3:44 PM LINOLEUM LAYER HELPER): The patient is doing extremely well with [...] on file Legal Sex Female 11:50 PM LINOLEUM LAYER HELPER Gender Identity Female 06/03/2020 8:04 PM LINOLEUM LAYER HELPER Sexual Orientation Straight 06/03/2020 8: 04 PM LINOLEUM LAYER HELPER Last Filed Vital Signs Vital Sign Reading Time Taken Comments Blood Pressure 116/58 02/09/2024 3:30 PM LINOLEUM LAYER HELPER Pulse 115 02/09/2024 3:30 PM LINOLEUM LAYER HELPER Temperature 36.7 C (98.1 F) 01/27/2023 3:32 PM CDT Respiratory Rate 16 08/13/2023 1:00 PM CDT Oxygen Saturation 98% 02/09/2024 3:30 PM LINOLEUM LAYER HELPER Inhaled Oxygen Concentration - - Weight 70.8 kg (156 lb) 02/09/2024 3:30 PM LINOLEUM LAYER HELPER Height 167.6 cm (5' 6) 02/09/2024 3:30 PM LINOLEUM LAYER HELPER Body Mass Index 25.18 02/09/2024 3:30 PM LINOLEUM LAYER HELPER Plan of Treatment Not on file Insurance [employer] [facility] Care Teams Drill Press Operator Relationship Specialty Start Date End Date Radames Ladd MD PCP - General Internal Medicine 06/04/20 Alivia Ortega, PT Physical Therapist Physical Therapy 12/12/21
== END 2024-11-01 16:11 | disposition home or self-care (01) ==
LOC: ANHIMG 16:12
PROVIDERS: PCP Internal Medicine; Visit Provider Obstetrics & Gynecology
DX: Z12.31 Encounter for screening mammogram for malignant neoplasm of breast (principal)
CPT/HCPCS: 77063; 77067